=== PATIENT | female | born 1995 | race Two or more races ===

== ENCOUNTER 2018-11-25 23:03 | Emergency (ER) | payer SELFPAY ==
[~2018-11-25] VITALS: Ht 157.5 cm; Wt 108.9 kg
[2018-11-25 23:36] VITALS: BP 146/82
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
[2018-11-25] MEDS ORDERED: IBUPROFEN600 MG ORAL (23:41)
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
[2018-11-26 00:30] VITALS: BP 146/82
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
== END 2018-11-26 00:30 | disposition home or self-care (01) ==
LOC: EDBD 23:03 → EMR 23:15
DX: S00.81XA Abrasion of other part of head, initial encounter (principal); S70.12XA Contusion of left thigh, initial encounter; V43.52XA Car driver injured in collision with other type car in traffic accident, initial encounter; Y92.414 Local residential or business street as the place of occurrence of the external cause; Z88.0 Allergy status to penicillin
CPT/HCPCS: 70450; 99284